=== PATIENT | female | born 1935 | race Caucasian/White ===

== ENCOUNTER 2019-02-17 20:46 | Emergency (ER) | payer MEDICARE, MEDICAID ==
[2019-02-17 20:55] VITALS: RESP 18; TEMP 99.2
[2019-02-17] MEDS ORDERED: Sodium Chloride 0.9% 1,000 ML IV ONE (21:06)
--- NOTE | 2019-02-17 21:08 | C.PDOC ---
History Of Present Illness 83 year old female presents to the ED c/o RUQ abdominal pain radiating to her back that started this afternoon. Patient also reports having some dysuria. Patient denies fever, chills, nausea, vomit, diarrhea, rash, CP, SOB. Chief Complaint (Nursing): Abdominal Pain History Per: Patient History/Exam Limitations: no limitations Onset/Duration Of Symptoms: Hrs Current Symptoms Are (Timing): Still Present Location Of Pain/Discomfort: RUQ Radiation Of Pain To:: Back Quality Of Discomfort: "Pain" Associated Symptoms: Urinary Symptoms. denies: Nausea, Vomiting, Diarrhea Recent travel outside of the [place]: No Additional History Per: Patient Abnormal Vaginal Bleeding: No Past Medical History Reviewed: Historical Data, Nursing Documentation, Vital Signs Vital Signs: Last Vital Signs Temp 99.2 F 02/17/19 20:51 Pulse 82 02/17/19 20:51 Resp 18 02/17/19 20:51 BP 170/82 H 02/17/19 20:51 Pulse Ox 95 02/17/19 20:51 Primary Care Provider: Guerita Schmidt - Medical History PMH: HTN Surgical History: Cholecystectomy Family History: States: Unknown Family Hx - Social History Hx Alcohol Use: No Hx Substance Use: No - Immunization History Hx Tetanus Toxoid Vaccination: No Hx Influenza Vaccination: No Hx Pneumococcal Vaccination: No Review Of Systems Constitutional: Negative for: Fever, Chills Cardiovascular: Negative for: Chest Pain, Palpitations Respiratory: Negative for: Shortness of Breath Gastrointestinal: Positive for: Abdominal Pain. Negative for: Nausea, Vomiting Genitourinary: Positive for: Dysuria Musculoskeletal: Positive for: Back Pain Skin: Negative for: Rash Neurological: Negative for: Weakness, Numbness, Headache, Dizziness Physical Exam - Physical Exam Appears: Non-toxic, In Acute Distress Skin: Normal Color, Warm, Dry Head: Atraumatic, Normacephalic Eye(s): bilateral: Normal Inspection Oral Mucosa: Moist Neck: Normal ROM, Supple Chest: Symmetrical Cardiovascular: Rhythm Regular Respiratory: Normal Breath Sounds, No Rales, No Rhonchi, No Wheezing Gastrointestinal/Abdominal: Soft, Tenderness (RUQ), No Guarding, No Rebound Back: CVA Tenderness (right slight) Extremity: Normal ROM, No Tenderness, No Swelling Neurological/Psych: Oriented x3, Normal Speech, Normal Cognition Gait: Steady ED Course And Treatment - Laboratory Results Result Diagrams: 02/17/19 21:16 02/17/19 21:16 O2 Sat by Pulse Oximetry: 95 (ON RA) Pulse Ox Interpretation: Normal - CT Scan/US CT abd/pelvis Other Rad Studies (CT/US): Read By Radiologist, Radiology Report Reviewed CT/US Interpretation: EXAM: CT Abdomen and Pelvis with IV contrast. CLINICAL HISTORY: Right sided pain. TECHNIQUE: Axial computed tomography images of the abdomen and pelvis with intravenous contrast. 0.00 mGy-cm. CONTRAST: With; 100MLS VISI 320. COMPARISON: None provided. FINDINGS: LUNG BASES: Mild atelectasis near the lung bases. The visualized heart is mildly enlarged. LIVER: Within the left lobe of liver there is a peripherally arterial enhancing and centrally hypodense lesion which measures at least 6.0 x 3.5 cm on series 2, image 17. This could represent primary hepatic malignancy, metastasis. Other etiologies are not excluded. Please correlate clinically and if indicated multiphasic liver CT or liver MRI could be obtained to further evaluate. At the head and. There is fatty infiltration of liver. GALLBLADDER AND BILE DUCTS: The gallbladder surgically absent. PANCREAS: Pancreas is somewhat atrophic. SPLEEN: Unremarkable. ADRENAL GLANDS: Unremarkable. KIDNEYS, URETERS, AND BLADDER: Bladder is predominantly decompressed. STOMACH AND BOWEL: Unremarkable appearance of the stomach and bowel. No evidence of bowel obstruction. No evidence suggesting enteritis or colitis. APPENDIX: No evidence of acute appendicitis on CT examination. PERITONEUM: No free fluid. No free air. LYMPH NODES: No lymphadenopathy is evident. REPRODUCTIVE: There is a large calcified fibroid in the uterus. VASCULATURE: Abdominal aorta is densely atherosclerotic without aneurysm. BONES: Moderate multilevel degenerat rell spine changes are present. There is Schmorl's node formation at superior endplate of L1. There is diffuse osteopenia. IMPRESSION: 1. The visualized heart is mildly enlarged. 2. Within the left lobe of liver there is a peripherally arterial enhancing and centrally hypodense lesion which measures at least 6.0 x 3.5 cm on series 2, image 17. This could represent primary hepatic malignancy, metastasis. Other etiologies are not excluded. Please correlate clinically and if indicated multiphasic liver CT or liver MRI could be obtained to further evaluate. At the head and. 3. There is fatty infiltration of liver. 4. Pancreas is somewhat atrophic. 5. There is a large calcified fibroid in the uterus. 6. Additional, incidental findings as described above. . Electronically signed on Feb 17, 2019 11:40:20 PM EDT by: Tyler Aguilar M.D., Certified by [facility], Diagnostic Radiology. Medical Decision Making Medical Decision Making: Plan: CT abd/pelvis EKG Labs IV fluids Toradol 30 mg IVP UA Upon D/C patient reports being aware of liver lesion found in CT, is schedule for a biopsy on Saturday. Disposition Counseled Patient/Family Regarding: Diagnosis - Disposition Referrals: Guerita Schmidt DO [[facility]] - Disposition: HOME/ ROUTINE Disposition Time: 00:10 Condition: STABLE Prescriptions: Ibuprofen [Motrin] 400 mg PO Q6 #10 tab Instructions: Acute Abdomen (Belly Pain), Liver Cancer (DC) Forms: [employer] ([place]) - POA Present On Arrival: None - Clinical Impression Clinical Impression: Abdominal pain, Liver mass - Scribe Statement The provider has reviewed the documentation as recorded by the Scribe Malachi De Jesus All medical record entries made by the Scribe were at my direction and personally dictated by me. I have reviewed the chart and agree that the record accurately reflects my personal performance of the history, physical exam, medical decision making, and the department course for this patient. I have also personally directed, reviewed, and agree with the discharge instructions and disposition.
[2019-02-17 21:19] LABS: BASO # 0.1 K/uL (0.0-0.2); BASO % 0.6 % (0.0-2.0); EOS # 0.1 K/uL (0.0-0.7); EOS % 0.5 % (0.0-4.0); HEMOGLOBIN 13.6 g/dL (11.0-16.0); LYMPH # 2.3 K/uL (1.0-4.3); LYMPH % 18.8 % (20.0-40.0); MEAN CELL VOLUME 88.7 fL (81.0-99.0); MEAN CORPUSCULAR HEMOGLOBIN 29.5 pg (27.0-31.0); MEAN CORPUSCULAR HGB CONC 33.2 g/dL (33.0-37.0); MEAN PLATELET VOLUME 8.8 fL (7.2-11.7); MONO # 0.9 K/uL (0.0-0.8); MONO % 7.6 % (0.0-10.0); NEUT # 8.7 K/uL (1.8-7.0); NEUT % 72.5 % (50.0-75.0); RBC 4.62 Mil/uL (3.80-5.20); RED CELL DISTRIBUTION WIDTH 13.5 % (11.5-14.5)
[2019-02-17 21:27] LABS: SQUAMOUS EPITHIAL 4 /hpf (0-5); URINE BILIRUBIN NEGATIVE (NEGATIVE); URINE BLOOD NEGATIVE (NEGATIVE); URINE CLARITY Clear (Clear); URINE COLOR Yellow (YELLOW); URINE GLUCOSE (UA) NORMAL (Normal); URINE LEUKOCYTE ESTERASE NEG Leu/uL (Negative); URINE PROTEIN NEGATIVE (NEGATIVE); URINE UROBILINOGEN NORMAL mg/dL (0.2-1.0)
[2019-02-17 21:31] LABS: ALB/GLOB RATIO 1.4 (1.0-2.1); ALBUMIN 4.6 g/dL (3.5-5.0); ALT/SGPT 25 U/L (9-52); AST/SGOT 29 U/L (14-36); BLOOD UREA NITROGEN 13 mg/dL (7-17); CALCIUM 9.5 mg/dl (8.6-10.4); GFR NON-AFRICAN AMERICAN > 60; LIPASE 30 U/L (23-300)
[2019-02-17] MEDS ORDERED: Iodixanol 320 MG/ML 100 ML BOTTLE IV ONE (21:32)
[2019-02-17 21:36] LABS: PROTHROMBIN TIME 11.2 SECONDS (9.7-12.2)
[2019-02-18 00:47] VITALS: BP 160/80; PULSE 74; O2SAT 98
--- NOTE | 2019-02-18 11:29 | CARD ---
APPROVED REPORT Date of service: 02/17/2019 EKG Measurement Heart [id number]-11 [id number] <Conclusion> Normal sinus rhythm Left bundle branch block Abnormal ECG
--- NOTE | 2019-02-18 11:37 | CT ---
Date of service: 02/17/2019 PROCEDURE: CT Abdomen and Pelvis with contrast HISTORY: upper abd pain to right flank COMPARISON: None available. TECHNIQUE: Contrast dose: 100 mL Visipaque 320 IV Radiation dose: Total exam DLP = 906.6 mGy-cm. This CT exam was performed using one or more of the following dose reduction techniques: Automated exposure control, adjustment of the mA and/or kV according to patient size, and/or use of iterative reconstruction technique. FINDINGS: LOWER THORAX: Bibasilar atelectasis. No visible pleural effusion or pneumothorax. LIVER: Indeterminate 2.2 x 3.8 cm hypodense mass (series 3, image 30) with associated peripheral enhancement. Hepatic steatosis. GALLBLADDER AND BILE DUCTS: Cholecystectomy. PANCREAS: Atrophy. SPLEEN: 11 mm splenule. Otherwise unremarkable. ADRENALS: Unremarkable. KIDNEYS AND URETERS: The kidneys enhance symmetrically. No hydronephrosis or obstructing calculus identified. VASCULATURE: No aortic aneurysm. Dense atherosclerotic calcifications of the aorta and branches. BOWEL: Stomach is nondistended. Lack of oral contrast limits evaluation for bowel pathology. Bowel loops appear within normal limits of caliber without evidence of obstruction. APPENDIX: The appendix is not identified. No secondary signs of acute appendicitis. PERITONEUM: No significant free fluid. No definite free air. LYMPH NODES: Scattered sub cm nonspecific retroperitoneal lymph nodes. BLADDER: Mildly thick-walled urinary bladder. REPRODUCTIVE: Uterus is present and contains 4.2 cm dense calcification at the fundus consistent with calcified fibroid. BONES: Osseous demineralization. Degenerative changes. Small mild loss of height at the L1 vertebral body as well as probable Schmorl's node involving the superior endplate of L1. OTHER FINDINGS: Small fat containing ventral hernias. IMPRESSION: Indeterminate 2.2 x 3.8 cm hypodense mass with associated peripheral enhancement. Differential diagnosis includes but not limited to hepatic malignancy, metastases, abscess. Dedicated cross-sectional imaging recommended for further characterization. Hepatic steatosis. Mildly thick-walled urinary bladder. Recommend correlation with urinalysis. 4.2 cm dense calcification at the uterine fundus consistent with calcified fibroid. Additional incidental findings as above. Preliminary impression was provided by [employer]
== END 2019-02-18 00:47 | disposition home or self-care (01) ==
LOC: C.ER 20:46
DX: R10.11 Right upper quadrant pain (principal); R16.0 Hepatomegaly, not elsewhere classified; I10 Essential (primary) hypertension
CPT/HCPCS: 74177; 80053; 81001; 83690; 84484; 85025; 85610; 85730; 93005; 96374; 99285; J1885; J7030; Q9967